=== PATIENT | female | born 1950 | race Two or more races ===

== ENCOUNTER 2019-12-24 11:00 | Inpatient (IN) | payer OTHER ==
[~2019-12-24] VITALS: Ht 154.9 cm; Wt 54.4 kg
[2019-12-24] MEDS ORDERED: BENEFIBER1 EAC1 PO (12:48)
== END 2019-12-29 13:39 | disposition home or self-care (01) | DRG 337 ==
LOC: ADM 11:00 → O/R 12-27 06:00 → SURG 12-27 06:00 → SURH 12-27 07:00 → EDSTATUS 12-27 11:00 → ADM 12-27 11:00 → SURH 12-27 11:00 → SURG 12-27 11:27
PROVIDERS: ADMIT Colon & Rectal Surgery; ATTEND Colon & Rectal Surgery
PROC: 0DNE4ZZ Release Large Intestine, Percutaneous Endoscopic Approach (ICD-10-PCS; principal; 2019-12-27 07:00)
DX: K56.51 Intestinal adhesions [bands], with partial obstruction (principal)